=== PATIENT | female | born 1950 | race Caucasian/White ===

== ENCOUNTER 2021-05-02 04:03 | Inpatient (IN) | payer MEDICARE, SELFPAY ==
[2021-05-02 04:59] LABS: Hemoglobin 9.9 g/dL (12.0-16.0); Mean Corpuscular HGB CONC 31.7 g/dL (32.0-36.0); Mean Corpuscular Hemoglobin 32.2 pg (27.0-31.0); Mean Platelet Volume 8.2 fL (7.4-10.4); Platelet Count 235 thou/uL (130-400); RBC Distribution Width 10.8 % (11.5-14.5); Red Blood Cell (RBC) Count 3.07 mill/uL (4.20-5.40)
[2021-05-02 05:10] LABS: ALT (SGPT) 15 U/L (8-55); AST (SGOT) 29 U/L (5-34); Albumin 3.6 g/dL (3.4-4.8); Alkaline Phosphatase 51 U/L (40-110); BUN (Urea Nitrogen) 16 mg/dL (9.8-20.1); Bilirubin, Total 0.5 mg/dL (0.2-1.2); Calc. Creatinine Clearance 0 mL/min (70-130); Globulin 2.6 g/dL (2.4-3.5); Glucose 89 mg/dL (83-110); Protein, Total 6.2 g/dL (5.8-8.1)
[2021-05-02 05:19] LABS: Anion Gap 19 mmol/L (10-20); Carbon Dioxide 40 mmol/L (23-31); Chloride 87 mmol/L (98-107); Potassium 5.3 mmol/L (3.5-5.1); Sodium 141 mmol/L (136-145)
[2021-05-02 05:31] LABS: Band 4 % (5-11); Hypochromia SLIGHT = 6-15 cells (100X) (0-5/hpf); Lymphocytes 5 % (21-51); MDiff Complete? YES; Macrocytosis SLIGHT = 6-15 cells (100X) (0-5/hpf); Monocytes 7 % (0-10); Neutrophil 84 % (42-75); Platelet Morphology Comment Appears Adequate; Stomatocytes SLIGHT = 2-5 cells (100X) (0-1/hpf)
[2021-05-02 05:46] LABS: Bilirubin Negative (Negative); Blood, Urine Negative (Negative); Clarity Clear (Clear); Glucose, Urine (Dipstick) Normal (Negative); Ketone, Urine Negative (Negative); Leukocyte Negative Leu/uL (Negative); Nitrite Negative (Negative); Protein, Urine (Dipstick) Negative (Neg-Trace); Specific Gravity, Urine 1.015 (1.002-1.036); Urobilinogen Normal mg/dL (Less than 2); pH, Urine 5.5 (5.0-9.0)
[2021-05-02] MEDS ORDERED: Lorazepam 2 MG/ML VIAL ONE ×2 (13:36→18:03)
[2021-05-02 17:14] LABS: Actual Bicarbonate (HCO3a) 49.8 mEq/L (22-28); Analyzer IN Cardio ER; Base Excess (BEa) 19.6 mEq/L (-2.0 to +3.0); Calcium, Ionized (arterial) 1.19 mmol/L (1.12-1.30); Carboxyhemoglobin (COHb) 0.6 gm% (0.0-3.0); Hemoglobin (Hb) 10.6 g/dL (12.0-16.0); O2 Tension (PaO2), arterial 91.5 mmHg (> 70.0); Potassium - ABG Lab 4.47 mmol/L (3.70-5.30); pH, Arterial 7.32 (7.35-7.45)
[2021-05-02] MEDS ORDERED: methylPREDNISolone Sod Succ/PF 125 MG/2 ML VIAL ONE (17:28)
[2021-05-02 17:34] LABS: SARS-CoV-2 NAA Rapid Test Not Detected (NotDetected)
[2021-05-02 17:43] LABS: CO2 Tension 99.5 mmHg (35.0-45.0); Puncture Site LRA
[2021-05-02 17:44] LABS: ALV-art Gradient 12.285 mmHg (0-20)
[2021-05-02] MEDS ORDERED: Ondansetron PF 4 MG/2 ML Vial IVP PRN (19:44)
[2021-05-02] MEDS ORDERED: hydrALAZINE 20 MG/ML VIAL SLOW IVP PRN (20:26)
[2021-05-02 21:01] LABS: BUN (Urea Nitrogen) 15 mg/dL (9.8-20.1); Calc. Creatinine Clearance 0 mL/min (70-130); Calcium 10.3 mg/dL (7.8-10.44); Glucose 105 mg/dL (83-110)
[2021-05-02 21:12] LABS: Anion Gap 19 mmol/L (10-20); Carbon Dioxide 38 mmol/L (23-31); Chloride 89 mmol/L (98-107); Potassium 5.1 mmol/L (3.5-5.1); Sodium 141 mmol/L (136-145)
[2021-05-03] MEDS: Famotidine 20 MG TAB PO SCH ×3 (00:20→20:24)
[2021-05-03 01:16] VITALS: BMI 35.3
[2021-05-03 04:15] LABS: BUN (Urea Nitrogen) 17 mg/dL (9.8-20.1); Calc. Creatinine Clearance 77 mL/min (70-130); Calcium 9.8 mg/dL (7.8-10.44); Glucose 139 mg/dL (83-110)
[2021-05-03 04:26] LABS: Anion Gap 18 mmol/L (10-20); Carbon Dioxide 36 mmol/L (23-31); Chloride 90 mmol/L (98-107); Potassium 4.9 mmol/L (3.5-5.1); Sodium 139 mmol/L (136-145)
[2021-05-03 07:24] LABS: #Lymphocytes 0.6 thou/uL (1.20-3.40); #Neutrophils 8.3 thou/uL (1.40-6.50); %Basophils 0.3 % (0.0-1.0); %Eosinophils 0.1 % (0.0-10.0); %Lymphocytes 6.2 % (21.0-51.0); %Monocytes 0.3 % (0.0-10.0); %Neutrophils 93.2 % (42.0-75.0); Hemoglobin 10.4 g/dL (12.0-16.0); Mean Corpuscular HGB CONC 31.8 g/dL (32.0-36.0); Mean Corpuscular Hemoglobin 31.7 pg (27.0-31.0); Mean Corpuscular Volume 99.5 fL (78.0-98.0); Mean Platelet Volume 7.6 fL (7.4-10.4); Platelet Count 221 thou/uL (130-400); RBC Distribution Width 10.8 % (11.5-14.5); Red Blood Cell (RBC) Count 3.28 mill/uL (4.20-5.40); White Blood Cell (WBC) Count 8.9 thou/uL (4.8-10.8)
[2021-05-03] MEDS: Enoxaparin Sodium 40 MG/0.4 ML SYRINGE SC SCH (07:47)
[2021-05-03 12:19] LABS: Actual Bicarbonate (HCO3a) 47.4 mEq/L (22-28); Base Excess (BEa) 19.6 mEq/L (-2.0 to +3.0); Calcium, Ionized (arterial) 1.21 mmol/L (1.12-1.30); Carboxyhemoglobin (COHb) 0.2 gm% (0.0-3.0); O2 Tension (PaO2), arterial 73.9 mmHg (> 70.0); Potassium - ABG Lab 4.54 mmol/L (3.70-5.30); pH, Arterial 7.42 (7.35-7.45)
[2021-05-03 15:57] LABS: CO2 Tension 74.1 mmHg (35.0-45.0); Puncture Site LRA
[2021-05-03 15:58] LABS: ALV-art Gradient 83.025 mmHg (0-20)
[2021-05-03] MEDS: ALPRAZolam 0.5 MG TAB PO PRN (20:24)
[2021-05-04 04:13] LABS: #Lymphocytes 2.3 thou/uL (1.20-3.40); #Neutrophils 9.2 thou/uL (1.40-6.50); %Basophils 0.2 % (0.0-1.0); %Eosinophils 0.1 % (0.0-10.0); %Lymphocytes 18.5 % (21.0-51.0); %Monocytes 8.3 % (0.0-10.0); %Neutrophils 72.9 % (42.0-75.0); Hemoglobin 9.4 g/dL (12.0-16.0); Mean Corpuscular HGB CONC 31.9 g/dL (32.0-36.0); Mean Corpuscular Hemoglobin 31.4 pg (27.0-31.0); Mean Corpuscular Volume 98.6 fL (78.0-98.0); Mean Platelet Volume 7.8 fL (7.4-10.4); Platelet Count 226 thou/uL (130-400); RBC Distribution Width 11.2 % (11.5-14.5); White Blood Cell (WBC) Count 12.6 thou/uL (4.8-10.8)
[2021-05-04 04:33] LABS: BUN (Urea Nitrogen) 25 mg/dL (9.8-20.1); Calc. Creatinine Clearance 65 mL/min (70-130); Calcium 9.7 mg/dL (7.8-10.44); Glucose 90 mg/dL (83-110)
[2021-05-04 04:42] LABS: Anion Gap 15 mmol/L (10-20); Chloride 91 mmol/L (98-107); Potassium 3.9 mmol/L (3.5-5.1); Sodium 143 mmol/L (136-145)
[2021-05-04 04:47] LABS: Carbon Dioxide 41 mmol/L (23-31)
[2021-05-04] MEDS: Acetaminophen 325 MG TAB PO PRN (09:01)
[2021-05-04] MEDS: ALPRAZolam 0.5 MG TAB PO PRN ×2 (09:01→12:43)
[2021-05-04] MEDS: Enoxaparin Sodium 40 MG/0.4 ML SYRINGE SC SCH (09:02)
[2021-05-04] MEDS: Famotidine 20 MG TAB PO SCH ×2 (09:02→21:10)
[2021-05-04] MEDS: traMADol HCl 50 MG TAB PO SCH ×2 (12:36→17:48)
[2021-05-04] MEDS: Mometasone 100 MCG/Formoterol 5 MCG 120 PUFF INHALER INH SCH (19:36)
[2021-05-05] MEDS: traMADol HCl 50 MG TAB PO SCH ×4 (00:19→18:34)
[2021-05-05] MEDS: ALPRAZolam 0.5 MG TAB PO PRN (00:19)
[2021-05-05 06:13] LABS: #Eosinphils 0.1 thou/uL (0.0-0.7); #Lymphocytes 2.8 thou/uL (1.20-3.40); #Monocytes 0.9 thou/uL (0.11-0.59); #Neutrophils 5.3 thou/uL (1.40-6.50); %Basophils 0.5 % (0.0-1.0); %Eosinophils 1.2 % (0.0-10.0); %Lymphocytes 30.8 % (21.0-51.0); %Monocytes 9.4 % (0.0-10.0); Hemoglobin 9.9 g/dL (12.0-16.0); Mean Corpuscular HGB CONC 31.8 g/dL (32.0-36.0); Mean Corpuscular Hemoglobin 31.8 pg (27.0-31.0); Mean Platelet Volume 7.5 fL (7.4-10.4); Platelet Count 228 thou/uL (130-400); Red Blood Cell (RBC) Count 3.12 mill/uL (4.20-5.40); White Blood Cell (WBC) Count 9.1 thou/uL (4.8-10.8)
[2021-05-05 06:33] LABS: BUN (Urea Nitrogen) 21 mg/dL (9.8-20.1); Calc. Creatinine Clearance 60 mL/min (70-130); Calcium 9.5 mg/dL (7.8-10.44); Glucose 111 mg/dL (83-110)
[2021-05-05 06:42] LABS: Anion Gap 17 mmol/L (10-20); Carbon Dioxide 39 mmol/L (23-31); Chloride 92 mmol/L (98-107); Potassium 3.8 mmol/L (3.5-5.1); Sodium 144 mmol/L (136-145)
[2021-05-05] MEDS: Mometasone 100 MCG/Formoterol 5 MCG 120 PUFF INHALER INH SCH ×2 (07:35→20:15)
[2021-05-05] MEDS ORDERED: Non-Formulary Item 1 EACH (Olmesartan/Hydrochlorothiazide [Olmesartan-Hctz 40-12.5 Mg Tab PO SCH (09:00)
[2021-05-05] MEDS: Famotidine 20 MG TAB PO SCH ×2 (10:12→22:46)
[2021-05-05] MEDS: Enoxaparin Sodium 40 MG/0.4 ML SYRINGE SC SCH (10:12)
[2021-05-05] MEDS: Simvastatin 10 MG TAB PO SCH (10:12)
[2021-05-05] MEDS: Losartan 25 MG TAB PO SCH (12:45)
[2021-05-05] MEDS: Amlodipine 10 MG TAB PO SCH (12:45)
[2021-05-05] MEDS: Hydrochlorothiazide 25 MG TAB PO SCH (12:45)
[2021-05-06] MEDS: traMADol HCl 50 MG TAB PO SCH ×4 (02:44→18:47)
[2021-05-06] MEDS: Mometasone 100 MCG/Formoterol 5 MCG 120 PUFF INHALER INH SCH ×2 (07:36→19:28)
[2021-05-06] MEDS: Hydrochlorothiazide 25 MG TAB PO SCH (09:03)
[2021-05-06] MEDS: Simvastatin 10 MG TAB PO SCH (09:03)
[2021-05-06] MEDS: Losartan 25 MG TAB PO SCH (09:05)
[2021-05-06] MEDS: Famotidine 20 MG TAB PO SCH ×2 (09:06→21:22)
[2021-05-06] MEDS: Amlodipine 10 MG TAB PO SCH (09:06)
[2021-05-06] MEDS: Enoxaparin Sodium 40 MG/0.4 ML SYRINGE SC SCH (09:07)
[2021-05-06 10:28] LABS: #Basophils 0.1 thou/uL (0.0-0.2); #Eosinphils 0.2 thou/uL (0.0-0.7); #Lymphocytes 2.3 thou/uL (1.20-3.40); %Basophils 0.7 % (0.0-1.0); %Eosinophils 1.8 % (0.0-10.0); %Lymphocytes 21.4 % (21.0-51.0); %Monocytes 9.1 % (0.0-10.0); Hemoglobin 9.3 g/dL (12.0-16.0); Mean Corpuscular HGB CONC 30.5 g/dL (32.0-36.0); Mean Corpuscular Hemoglobin 30.6 pg (27.0-31.0); Mean Platelet Volume 7.6 fL (7.4-10.4); Platelet Count 226 thou/uL (130-400); RBC Distribution Width 11.1 % (11.5-14.5); Red Blood Cell (RBC) Count 3.05 mill/uL (4.20-5.40); White Blood Cell (WBC) Count 10.5 thou/uL (4.8-10.8)
[2021-05-06 10:41] LABS: BUN (Urea Nitrogen) 19 mg/dL (9.8-20.1); Calc. Creatinine Clearance 63 mL/min (70-130); Calcium 9.4 mg/dL (7.8-10.44); Glucose 139 mg/dL (83-110)
[2021-05-06 10:50] LABS: Anion Gap 16 mmol/L (10-20); Carbon Dioxide 37 mmol/L (23-31); Chloride 92 mmol/L (98-107); Potassium 3.7 mmol/L (3.5-5.1); Sodium 141 mmol/L (136-145)
[2021-05-07] MEDS: traMADol HCl 50 MG TAB PO SCH ×5 (00:17→23:31)
[2021-05-07] MEDS: ALPRAZolam 0.5 MG TAB PO PRN (02:11)
[2021-05-07 06:29] LABS: #Eosinphils 0.2 thou/uL (0.0-0.7); #Lymphocytes 2.4 thou/uL (1.20-3.40); #Monocytes 0.9 thou/uL (0.11-0.59); %Basophils 0.3 % (0.0-1.0); %Eosinophils 1.8 % (0.0-10.0); %Lymphocytes 22.5 % (21.0-51.0); %Monocytes 8.6 % (0.0-10.0); %Neutrophils 66.8 % (42.0-75.0); Hemoglobin 9.2 g/dL (12.0-16.0); Mean Corpuscular HGB CONC 30.3 g/dL (32.0-36.0); Mean Corpuscular Hemoglobin 30.7 pg (27.0-31.0); Mean Platelet Volume 7.5 fL (7.4-10.4); Platelet Count 230 thou/uL (130-400); RBC Distribution Width 11.1 % (11.5-14.5); Red Blood Cell (RBC) Count 3.01 mill/uL (4.20-5.40); White Blood Cell (WBC) Count 10.4 thou/uL (4.8-10.8)
[2021-05-07 06:45] LABS: BUN (Urea Nitrogen) 22 mg/dL (9.8-20.1); Calc. Creatinine Clearance 56 mL/min (70-130); Calcium 9.5 mg/dL (7.8-10.44); Glucose 102 mg/dL (83-110)
[2021-05-07 06:51] LABS: Anion Gap 17 mmol/L (10-20); Carbon Dioxide 38 mmol/L (23-31); Chloride 92 mmol/L (98-107); Potassium 4.2 mmol/L (3.5-5.1); Sodium 143 mmol/L (136-145)
[2021-05-07] MEDS: Amlodipine 10 MG TAB PO SCH (09:15)
[2021-05-07] MEDS: Hydrochlorothiazide 25 MG TAB PO SCH (09:16)
[2021-05-07] MEDS: Famotidine 20 MG TAB PO SCH ×2 (09:17→21:04)
[2021-05-07] MEDS: Losartan 25 MG TAB PO SCH (09:17)
[2021-05-07] MEDS: Simvastatin 10 MG TAB PO SCH (09:18)
[2021-05-07] MEDS: Enoxaparin Sodium 40 MG/0.4 ML SYRINGE SC SCH (09:18)
[2021-05-07] MEDS: Mometasone 100 MCG/Formoterol 5 MCG 120 PUFF INHALER INH SCH ×2 (11:15→22:47)
[2021-05-07] MEDS ORDERED: Ketorolac Tromethamine 30 MG/ML VIAL IVP SCH (14:00)
[2021-05-07] MEDS ORDERED: Ketorolac Tromethamine 10 MG TAB PO SCH (14:45)
[2021-05-08] MEDS: traMADol HCl 50 MG TAB PO SCH ×4 (06:19→23:42)
[2021-05-08] MEDS: Mometasone 100 MCG/Formoterol 5 MCG 120 PUFF INHALER INH SCH ×2 (07:44→19:20)
[2021-05-08] MEDS: Famotidine 20 MG TAB PO SCH ×2 (09:03→20:46)
[2021-05-08] MEDS: Simvastatin 10 MG TAB PO SCH (09:04)
[2021-05-08] MEDS: Enoxaparin Sodium 40 MG/0.4 ML SYRINGE SC SCH (09:06)
[2021-05-08] MEDS: Amlodipine 10 MG TAB PO SCH (09:12)
[2021-05-08] MEDS: Hydrochlorothiazide 25 MG TAB PO SCH (09:13)
[2021-05-08] MEDS: Losartan 25 MG TAB PO SCH (09:13)
[2021-05-09] MEDS: ALPRAZolam 0.5 MG TAB PO PRN (00:29)
[2021-05-09] MEDS: traMADol HCl 50 MG TAB PO SCH ×3 (06:52→19:10)
[2021-05-09] MEDS: Mometasone 100 MCG/Formoterol 5 MCG 120 PUFF INHALER INH SCH ×2 (07:20→19:10)
[2021-05-09] MEDS: Amlodipine 10 MG TAB PO SCH (10:25)
[2021-05-09] MEDS: Famotidine 20 MG TAB PO SCH ×2 (10:26→20:51)
[2021-05-09] MEDS: Hydrochlorothiazide 25 MG TAB PO SCH (10:26)
[2021-05-09] MEDS: Losartan 25 MG TAB PO SCH (10:26)
[2021-05-09] MEDS: Acetaminophen 325 MG TAB PO PRN (10:27)
[2021-05-09] MEDS: Simvastatin 10 MG TAB PO SCH (10:28)
[2021-05-09] MEDS: Enoxaparin Sodium 40 MG/0.4 ML SYRINGE SC SCH (10:43)
[2021-05-10] MEDS: traMADol HCl 50 MG TAB PO SCH ×5 (00:30→21:39)
[2021-05-10 03:46] LABS: SARS-CoV-2 PCR by NAA Not Detected (NotDetected)
[2021-05-10] MEDS: Mometasone 100 MCG/Formoterol 5 MCG 120 PUFF INHALER INH SCH ×2 (06:57→19:27)
[2021-05-10] MEDS: Hydrochlorothiazide 25 MG TAB PO SCH (08:32)
[2021-05-10] MEDS: Enoxaparin Sodium 40 MG/0.4 ML SYRINGE SC SCH (08:32)
[2021-05-10] MEDS: Losartan 25 MG TAB PO SCH (08:33)
[2021-05-10] MEDS: Amlodipine 10 MG TAB PO SCH (08:33)
[2021-05-10] MEDS: Famotidine 20 MG TAB PO SCH ×2 (08:33→21:39)
[2021-05-10] MEDS: Simvastatin 10 MG TAB PO SCH (08:33)
[2021-05-10 09:16] LABS: #Eosinphils 0.3 thou/uL (0.0-0.7); #Lymphocytes 1.4 thou/uL (1.20-3.40); #Monocytes 0.9 thou/uL (0.11-0.59); #Neutrophils 7.3 thou/uL (1.40-6.50); %Basophils 0.2 % (0.0-1.0); %Eosinophils 3.2 % (0.0-10.0); %Lymphocytes 14.1 % (21.0-51.0); %Monocytes 8.6 % (0.0-10.0); %Neutrophils 73.9 % (42.0-75.0); Mean Corpuscular HGB CONC 31.7 g/dL (32.0-36.0); Mean Corpuscular Hemoglobin 31.9 pg (27.0-31.0); Mean Platelet Volume 7.2 fL (7.4-10.4); Platelet Count 281 thou/uL (130-400); Red Blood Cell (RBC) Count 3.13 mill/uL (4.20-5.40); White Blood Cell (WBC) Count 9.9 thou/uL (4.8-10.8)
[2021-05-10 09:29] LABS: BUN (Urea Nitrogen) 19 mg/dL (9.8-20.1); Calc. Creatinine Clearance 60 mL/min (70-130); Calcium 9.9 mg/dL (7.8-10.44); Glucose 151 mg/dL (83-110)
[2021-05-10 09:38] LABS: Anion Gap 19 mmol/L (10-20); Carbon Dioxide 36 mmol/L (23-31); Chloride 93 mmol/L (98-107); Potassium 4.1 mmol/L (3.5-5.1); Sodium 144 mmol/L (136-145)
[2021-05-11] MEDS: traMADol HCl 50 MG TAB PO SCH ×5 (00:17→23:15)
[2021-05-11] MEDS: Enoxaparin Sodium 40 MG/0.4 ML SYRINGE SC SCH (09:11)
[2021-05-11] MEDS: Amlodipine 10 MG TAB PO SCH (09:11)
[2021-05-11] MEDS: Hydrochlorothiazide 25 MG TAB PO SCH (09:11)
[2021-05-11] MEDS: Simvastatin 10 MG TAB PO SCH (09:11)
[2021-05-11] MEDS: Famotidine 20 MG TAB PO SCH ×2 (09:11→21:19)
[2021-05-11] MEDS: Losartan 25 MG TAB PO SCH (09:11)
[2021-05-11] MEDS: Mometasone 100 MCG/Formoterol 5 MCG 120 PUFF INHALER INH SCH ×2 (09:33→18:45)
[2021-05-12] MEDS: traMADol HCl 50 MG TAB PO SCH ×4 (05:57→23:39)
[2021-05-12] MEDS: Famotidine 20 MG TAB PO SCH ×2 (08:30→20:06)
[2021-05-12] MEDS: Simvastatin 10 MG TAB PO SCH (08:30)
[2021-05-12] MEDS: Hydrochlorothiazide 25 MG TAB PO SCH (08:30)
[2021-05-12] MEDS: Amlodipine 10 MG TAB PO SCH (08:30)
[2021-05-12] MEDS: Losartan 25 MG TAB PO SCH (08:30)
[2021-05-12] MEDS: Enoxaparin Sodium 40 MG/0.4 ML SYRINGE SC SCH (08:31)
[2021-05-12] MEDS: Mometasone 100 MCG/Formoterol 5 MCG 120 PUFF INHALER INH SCH ×2 (11:02→19:42)
[2021-05-13] MEDS: traMADol HCl 50 MG TAB PO SCH ×3 (06:30→18:41)
[2021-05-13] MEDS: Mometasone 100 MCG/Formoterol 5 MCG 120 PUFF INHALER INH SCH ×2 (07:10→19:27)
[2021-05-13] MEDS: Enoxaparin Sodium 40 MG/0.4 ML SYRINGE SC SCH (10:23)
[2021-05-13] MEDS: Hydrochlorothiazide 25 MG TAB PO SCH (10:24)
[2021-05-13] MEDS: Amlodipine 10 MG TAB PO SCH (10:24)
[2021-05-13] MEDS: Famotidine 20 MG TAB PO SCH ×2 (10:24→20:47)
[2021-05-13] MEDS: Losartan 25 MG TAB PO SCH (10:25)
[2021-05-13] MEDS: Simvastatin 10 MG TAB PO SCH (10:25)
[2021-05-13] MEDS: ALPRAZolam 0.5 MG TAB PO PRN (21:52)
[2021-05-14] MEDS: traMADol HCl 50 MG TAB PO SCH ×5 (00:40→23:27)
[2021-05-14] MEDS: Mometasone 100 MCG/Formoterol 5 MCG 120 PUFF INHALER INH SCH ×2 (07:21→20:07)
[2021-05-14] MEDS: Amlodipine 10 MG TAB PO SCH (09:00)
[2021-05-14] MEDS: Enoxaparin Sodium 40 MG/0.4 ML SYRINGE SC SCH (09:00)
[2021-05-14] MEDS: Hydrochlorothiazide 25 MG TAB PO SCH (09:00)
[2021-05-14] MEDS: Famotidine 20 MG TAB PO SCH ×2 (09:00→21:07)
[2021-05-14] MEDS: Simvastatin 10 MG TAB PO SCH (09:00)
[2021-05-14] MEDS: Losartan 25 MG TAB PO SCH (11:43)
[2021-05-14] MEDS: ALPRAZolam 0.5 MG TAB PO PRN (23:27)
[2021-05-15] MEDS: traMADol HCl 50 MG TAB PO SCH ×2 (06:48→12:02)
[2021-05-15] MEDS: Mometasone 100 MCG/Formoterol 5 MCG 120 PUFF INHALER INH SCH (07:05)
[2021-05-15] MEDS: Enoxaparin Sodium 40 MG/0.4 ML SYRINGE SC SCH (09:00)
[2021-05-15] MEDS: Simvastatin 10 MG TAB PO SCH (09:00)
[2021-05-15] MEDS: Hydrochlorothiazide 25 MG TAB PO SCH (09:00)
[2021-05-15] MEDS: Famotidine 20 MG TAB PO SCH (09:00)
[2021-05-15] MEDS: Amlodipine 10 MG TAB PO SCH (09:00)
[2021-05-15] MEDS: Losartan 25 MG TAB PO SCH (12:02)
[2021-05-15] MEDS: ALPRAZolam 0.5 MG TAB PO PRN (12:09)
[2021-05-15 15:42] VITALS: BP 122/65; TEMP 98.4
== END 2021-05-15 17:15 | DRG 189 ==
LOC: ERS 04:03 → IMCU/EMU 17:49 → SURG A 05-04 14:47
PROVIDERS: ADMIT Internal Medicine; ATTEND Internal Medicine
PROC: 5A09557 Assistance with Respiratory Ventilation, Greater than 96 Consecutive Hours, Continuous Positive Airway Pressure (ICD-10-PCS; principal; 2021-05-02)
DX: J96.22 Acute and chronic respiratory failure with hypercapnia (principal); G93.41 Metabolic encephalopathy; N17.9 Acute kidney failure, unspecified; J44.1 Chronic obstructive pulmonary disease with (acute) exacerbation; Z20.822 Contact with and (suspected) exposure to COVID-19; M25.552 Pain in left hip; E78.5 Hyperlipidemia, unspecified; D72.829 Elevated white blood cell count, unspecified; G47.33 Obstructive sleep apnea (adult) (pediatric); M10.9 Gout, unspecified; J96.21 Acute and chronic respiratory failure with hypoxia; N18.2 Chronic kidney disease, stage 2 (mild); M19.90 Unspecified osteoarthritis, unspecified site; I12.9 Hypertensive chronic kidney disease with stage 1 through stage 4 chronic kidney disease, or unspecified chronic kidney disease; D63.1 Anemia in chronic kidney disease; Z78.1 Physical restraint status; Z99.81 Dependence on supplemental oxygen; Z88.1 Allergy status to other antibiotic agents; Z79.899 Other long term (current) drug therapy
CPT/HCPCS: 0240U; 36415; 36416; 36600; 70450; 71045; 80048; 80053; 81003; 82140; 82805; 84145; 84550; 85025; 87086; 93005; 94640; 94660; 96374; 96375; 96376; J1650; J2060; J2930; J7620; U0003; U0005

== ENCOUNTER 2023-08-14 06:02 | Day surgery (SDC) | payer MEDICARE, OTHER ==
[2023-08-13 10:39] VITALS: BMI 31.4
[2023-08-14] MEDS ORDERED: PROPOFOL 60 ML ONE (07:42)
[2023-08-14] MEDS ORDERED: Ketamine In 0.9 % NaCl 50 MG/5 ML SYRINGE ONE (07:42)
[2023-08-14] MEDS ORDERED: Midazolam HCl 2 mg/2 ml Vial ONE (07:42)
[2023-08-14] MEDS ORDERED: Lidocaine 1% PF 5 ML VIAL ONE (07:42)
[2023-08-14] MEDS ORDERED: Simethicone 40 MG/0.6 ML Drop 30 ML BOT ONE (08:06)
[2023-08-14] MEDS ORDERED: PHENYLEPHRINE-NS 100 MCG/ML 10 ML SYRINGE ONE (08:15)
[2023-08-14] MEDS ORDERED: PROPOFOL 20 ML ONE (08:25)
== END 2023-08-14 09:45 | disposition home or self-care (01) ==
LOC: SDC 06:02
PROVIDERS: ATTEND Internal Medicine Gastroenterology
PROC: 0DB68ZX Excision of Stomach, Via Natural or Artificial Opening Endoscopic, Diagnostic (ICD-10-PCS; principal; 2023-08-14)
PROC: 0DBK8ZX Excision of Ascending Colon, Via Natural or Artificial Opening Endoscopic, Diagnostic (ICD-10-PCS; 2023-08-14)
PROC: 0DBM8ZX Excision of Descending Colon, Via Natural or Artificial Opening Endoscopic, Diagnostic (ICD-10-PCS; 2023-08-14)
PROC: 0DBH8ZX Excision of Cecum, Via Natural or Artificial Opening Endoscopic, Diagnostic (ICD-10-PCS; 2023-08-14)
DX: D12.0 Benign neoplasm of cecum (principal); D12.2 Benign neoplasm of ascending colon; D12.4 Benign neoplasm of descending colon; K31.89 Other diseases of stomach and duodenum; I25.10 Atherosclerotic heart disease of native coronary artery without angina pectoris; I10 Essential (primary) hypertension; J44.9 Chronic obstructive pulmonary disease, unspecified; Z79.899 Other long term (current) drug therapy; Z86.010 Personal history of colon polyps; Z95.1 Presence of aortocoronary bypass graft; Z80.0 Family history of malignant neoplasm of digestive organs; Z80.51 Family history of malignant neoplasm of kidney
CPT/HCPCS: 88305; J2250; J2704; J3490